=== PATIENT | female | born 1985 ===

== ENCOUNTER 2019-03-04 15:02 | Outpatient (CLI) | payer OTHER | END 2019-03-04 16:20 | disposition home or self-care (01) | LOC: PRENATAL 15:02 | DX: O35.3XX0 Maternal care for (suspected) damage to fetus from viral disease in mother, not applicable or unspecified (principal); O34.219 Maternal care for unspecified type scar from previous cesarean delivery ==

== ENCOUNTER 2020-05-07 05:35 | Day surgery (SDC) | payer OTHER ==
[~2020-05-07 05:35] MED LIST: CENTRUM ADULTS1 EACH PO
== END 2020-05-07 17:35 | disposition home or self-care (01) ==
LOC: CIR.AMB 05:35
PROVIDERS: ATTEND Plastic Surgery
DX: M62.08 Separation of muscle (nontraumatic), other site (principal); N62 Hypertrophy of breast; Z20.828 Contact with and (suspected) exposure to other viral communicable diseases